=== PATIENT | male | born 1995 | race Caucasian/White ===

== ENCOUNTER 2017-04-28 10:58 | Emergency (ER) | payer OTHER ==
[~2017-04-28] VITALS: Ht 162.6 cm; Wt 68.0 kg
[2017-04-28] MEDS ORDERED: PHENERGAN 25 MG25 M1 PO (12:33)
[2017-04-28] MEDS ORDERED: NAPROSYN500 MG PO (12:33)
[2017-04-28] MEDS ORDERED: HYDROCODONE-AP1 EAC6 PO (12:33)
[2017-04-28 13:19] VITALS: BP 142/78
== END 2017-04-28 12:59 | disposition home or self-care (01) ==
LOC: ER 10:58
DX: S02.40FA Zygomatic fracture, left side, initial encounter for closed fracture (principal); F17.210 Nicotine dependence, cigarettes, uncomplicated; F10.99 Alcohol use, unspecified with unspecified alcohol-induced disorder; W22.8XXA Striking against or struck by other objects, initial encounter; Y93.89 Activity, other specified; Y92.89 Other specified places as the place of occurrence of the external cause; Y99.8 Other external cause status